=== PATIENT | male | born 1985 | race Caucasian/White ===

== ENCOUNTER 2021-02-17 15:45 | Outpatient (RCR) | payer OTHER, SELFPAY ==
--- NOTE | 2021-02-17 16:55 | HP.PTEVAL_ITS ---
Patient's Visit Information LALA RAMOS is a 35 year old M referred to Physical Therapy by Dr. Brent White MD with a diagnosis of Vestibular neuritis. Date of Evaluation: 02/17/21 Physical Therapist: Lan Trivedi DPT, OCS, CSCS - Visit Plan Frequency: 1x/Week Duration: 4-6 Weeks Plan: weekly as needed for progression of adaptation and habituation ex until goals met. - Subjective Had vertigo for 3 weeks, one month ago today. A lot better now, did not drive for 3 weeks but can now. Started about a month ago. Doctor said had a viral infection. Started with lightheadedness on Monday and dizzy shooting on Monday night. Woke up that night with bad spinning. In bed with eyes closed for 8 days. One day in went to ENT and chiropractor. Said it was viral and gave him steroid script which made him crazy. Had acupuncture adn positional maneuvers which did not help. Went to ER for CATSCAN and blood work which were fine. Didnt' drive for 3 weeks and started last week. Employed in [employer] and was off 8 days. Drives and sits at desk. Fine to drive, slow with head movements left and right. Basic ADLS are getting done. has not shot gun (hobby) in amonth and that is unusual. Hobbies are outdoors. Given meclizine which did not help much. Sleep is OK. 80% back to normal. Side to side quick movements are still the problem. Balance can be off with eyes closed in shower. - Objective Pt walks back to PT I and easily, trasnfers bed and chair I, steps reciprocal without rail. cervical and UE AROM WFL and full and painfree. - B hallpike jeremy test. Balance is good. Oculomotor: no nyhstagmus with gaze or head shake. - skew eye deviation. - ocular tilt. + R head thrust. Pursuit and saccades are normal and asymptomatic. VOR horiz 30 sec 3/10 for 40 seconds. Vor vertical 30 seconds 2/109 and 10 second duration. - Balance/Special Test Scores Functional Gait Assessment Score: 29 % Disability: 3.3400 Dizziness Score: 30 - Goals Goal 1:: Close eyes in shower without fear Goal Time Frame: 2-4 Weeks Goal 2:: turn head in car without symptoms. Goal Time Frame: 2-4 Weeks Goal 3:: 100% back to normal. Goal Time Frame: 2-4 Weeks - Rehabilitation Potential Physical Therapy Diagnosis: Unilateral vestibular hypifunction Rehabilitation Potential: Excellent - Anticipated Interventions Patient/Client Instruction: Educate patient on: Condition, Plan of Care For the Purpose of:: To increase tolerance to activity/condition/position Comment: adaptation and habituation For the Purpose of:: To increase tolerance to activity/condition/position Thank you for the opportunity to evaluate your patient. For Medicare and Medicare HMO plans, please review the plan of care and approve it. It will need to be FAXED BACK to us at [phone] for Medicare purposes. For Medicare only, by signing this I certify the plan of care. Please let me know if there are questions or concerns regarding this plan of care. Physician Signature: Date:
--- NOTE | 2021-04-16 08:18 | HP.PT.NRP ---
LALA RAMOS was seen in my office for initial evaluation on 02/17/21. The following Plan of Care was established for this patient: Initial Frequency: 1x/Week Initial Duration: 4-6 Weeks Patient/Client Instruction: Educate patient on: Condition, Plan of Care For the Purpose of:: To increase tolerance to activity/condition/position For the Purpose of:: To increase tolerance to activity/condition/position This patient was last seen in our office 02/17/21. Pertinent comments regarding their Physical therapy will appear below: Pt seen for initial evaluation of vertigo and HEp given. He was to f/u yazmin for progression but was already feeling 80% better and did not attend any further visits. at this point, it has been almost two months and I will disocntinue due to nonattendance. At this point I will be discontinuing this patient from physical therapy. I would be happy to see this patient again in the future if found appropriate by the physician. Thank you! Lan Trivedi, DPT, OCS, CSCS Balance/Gait/Functional tests - Balance/Special Test Scores Functional Gait Assessment Score: 29 % Disability: 3.3400 Dizziness Score: 30
== END 2021-02-17 19:00 | disposition home or self-care (01) ==
LOC: PT 15:45
PROVIDERS: PCP Family Medicine; Referring Provider Otolaryngology; Visit Provider Otolaryngology
DX: H81.20 Vestibular neuronitis, unspecified ear (principal)
CPT/HCPCS: 97161